=== PATIENT | female | born 1970 | race Caucasian/White ===

== ENCOUNTER → 2023-09-12 08:50 | Outpatient (REF) | payer OTHER, SELFPAY | LOC: WDC 08:50 | PROVIDERS: ATTENDING PHYSICIAN Nurse Practitioner Family; FAMILY PHYSICIAN Internal Medicine | DX: N63.10 Unspecified lump in the right breast, unspecified quadrant (principal) | CPT/HCPCS: 76642; 77062; 77066 ==

== ENCOUNTER → 2024-01-24 09:22 | Outpatient (REF) | payer OTHER, SELFPAY | LOC: RCS 09:22 | PROVIDERS: ATTENDING PHYSICIAN Orthopaedic Surgery Sports Medicine; FAMILY PHYSICIAN Internal Medicine | DX: S73.191A Other sprain of right hip, initial encounter (principal); M16.11 Unilateral primary osteoarthritis, right hip; Z01.818 Encounter for other preprocedural examination; R79.1 Abnormal coagulation profile; R73.09 Other abnormal glucose | CPT/HCPCS: 93005 ==

== ENCOUNTER → 2025-06-24 15:30 | Outpatient (REF) | payer OTHER, SELFPAY | LOC: WDC 15:30 | PROVIDERS: ATTENDING PHYSICIAN Physician Assistant | DX: Z12.31 Encounter for screening mammogram for malignant neoplasm of breast (principal) | CPT/HCPCS: 77063; 77067 ==